=== PATIENT | female | born 1985 | race American Indian/Alaskan Native ===

== ENCOUNTER 2019-01-05 11:05 | Day surgery (SDC) | payer OTHER ==
[~2019-01-05 11:05] MED LIST: Ketamine 500 mg/10 ML MDV ONE; Lactated Ringers 1,000 ML IV SCH; Lidocaine 1% 4 ML ONE; Lidocaine 1%/Sod Bicarbonate in NS 8.4% 1 ML Syringe IDERM PRN; Propofol 200 MG/20 ML SDV ONE; Sodium Chloride 0.9% 10 ML Syringe FLUSH PRN
--- NOTE | 2019-01-05 12:02 | PCM.PREANE ---
Preanesthetic Assessment - Procedure Proposed Procedure: EGD - Anesthesia/Transfusion/Family Hx Anesthesia History: Prior Anesthesia Without Reaction Family History of Anesthesia Reaction: No Transfusion History: No Prior Transfusion(s) - Review of Systems General: No Symptoms Pulmonary: No Symptoms Cardiovascular: No Symptoms Gastrointestinal: No Symptoms Neurological: No Symptoms Other: Reports: Depression (history) - Physical Assessment NPO Status Date: 01/04/19 NPO Status Time: 00:00 Height: 1.73 m Weight: 89 kg ASA Class: 2 Mental Status: Alert & Oriented x3 Airway Class: Mallampati = 1 Dentition: Reports: Normal Dentition, [place](s) Thyro-Mental Finger Breadths: 3 Mouth Opening Finger Breadths: 3 ROM/Head Extension: Full Lungs: Clear to Auscultation, Normal Respiratory Effort Cardiovascular: Regular Rate, Regular Rhythm - Allergies Allergies/Adverse Reactions: Allergies Allergy/AdvReac Type Severity Reaction Status Date / Time No Known Allergies Allergy Verified 01/02/19 11:09 - Blood Blood Available: No Product(s) Available: None - Anesthesia Plan Pre-Op Medication Ordered: None - Acknowledgements Anesthesia Type Planned: MAC Pt an Appropriate Candidate for the Planned Anesthesia: Yes Alternatives and Risks of Anesthesia Discussed w Pt/Guardian: Yes Pt/Guardian Understands and Agrees with Anesthesia Plan: Yes PreAnesthesia Questionnaire Cardiovascular History: Reports: Hypertension Respiratory History: Reports: None Gastrointestinal History: Reports: None Genitourinary History: Reports: [employer] MA[employer]GER ANALYTICAL History: Reports: None Musculoskeletal History: Reports: Other (See Below) Other Musculoskeletal History: thoracic pain Neurological History: Reports: None Psychiatric History: Reports: Anxiety, PTSD, Other (See Below) Other Psychiatric History: borderline personality disorder, psychoactive substance disorder, major depressive disorder Endocrine/Metabolic History: Reports: None Hematologic History: Reports: None Immunologic History: Reports: None Oncologic (Cancer) History: Reports: None Dermatologic History: Reports: Other (See Below) Other Dermatologic History: skin disorder - Past Surgical History Head Surgeries/Procedures: Reports: None HEENT Surgical History: Reports: Tonsillectomy Cardiovascular Surgical History: Reports: None Respiratory Surgical History: Reports: None GI Surgical History: Reports: EGD Female Surgical History: Reports: Section Male Surgical History: Reports: None Endocrine Surgical History: Reports: None Neurological Surgical History: Reports: None Musculoskeletal Surgical History: Reports: None Oncologic Surgical History: Reports: None Dermatological Surgical History: Reports: None - SUBSTANCE USE Smoking Status *Q: Former Smoker Tobacco Use Within Last Twelve Months: No Second Hand Smoke Exposure: No Days Per Week of Alcohol Use: 0 Number of Drinks Per Day: 0 Total Drinks Per Week: 0 Recreational Drug Use History: Yes Recreational Drug Type: Reports: Methamphetamine (in the past, 2017) - HOME MEDS Home Medications: Home Meds Acetaminophen [Tylenol Extra Strength] 500 mg PO BID 01/02/19 [History] Citalopram Hydrobromide [Celexa] 20 mg PO DAILY 01/02/19 [History] Hydrocortisone [Anusol-HC] 1 dose RECTAL QID PRN 01/02/19 [History] Oxybutynin [Oxybutynin ER] 5 mg PO DAILY 01/02/19 [History] Pantoprazole Sodium [Protonix] 40 mg PO QAM 01/02/19 [History] Prazosin [Minpress] 3 mg PO BEDTIME 01/02/19 [History] cloNIDine HCl [Catapres] 0.2 mg PO BID 01/02/19 [History] hydrOXYzine HCl [hydrOXYzine] 50 mg PO DAILY 01/02/19 [History] hydrOXYzine HCl [hydrOXYzine] 50 mg PO Q6H PRN 01/02/19 [History] risperiDONE [Risperdal] 2 mg PO BEDTIME 01/02/19 [History] - CURRENT (IN HOUSE) MEDS Current Meds: Current Medications Lactated Ringer's (Ringers, Lactated) 1,000 mls @ 125 mls/hr IV ASDIRECTED DEXTER Stop: 01/05/19 23:00 Last Admin: 01/05/19 11:25 Dose: 125 mls/hr Lidocaine/Sodium Bicarbonate (Buffered Lidocaine 1% In Ns 8.4%) 0.25 ml IDERM ONETIME PRN PRN Reason: Prior to IV Start Stop: 01/05/19 18:00 Last Admin: 01/05/19 11:24 Dose: 0.25 ml Sodium Chloride (Saline Flush) 10 ml FLUSH ASDIRECTED PRN PRN Reason: Keep Vein Open Stop: 01/05/19 18:00 Discontinued Medications Lidocaine HCl (Xylocaine-Mpf 1%) Confirm Administered Dose 4 mls @ as directed .ROUTE .STK-MED ONE Stop: 01/05/19 10:39 Lidocaine HCl (Xylocaine-Mpf 1%) Confirm Administered Dose 4 mls @ as directed .ROUTE .STK-MED ONE Stop: 01/05/19 10:40 Ketamine HCl (Ketalar) Confirm Administered Dose 500 mg .ROUTE .STK-MED ONE Stop: 01/05/19 10:39 Propofol (Diprivan 20 Ml) Confirm Administered Dose 400 mg .ROUTE .STK-MED ONE Stop: 01/05/19 10:39 Propofol (Diprivan 20 Ml) Confirm Administered Dose 200 mg .ROUTE .STK-MED ONE Stop: 01/05/19 10:44
[2019-01-05] MEDS ORDERED: Succinylcholine/Normal Saline 100 MG/5 ML Syringe ONE ×2 (14:09→14:30)
[2019-01-05] MEDS ORDERED: Lactated Ringers 1,000 ML ONE ×2 (14:25→14:45)
[2019-01-05] MEDS ORDERED: Ondansetron 4 MG/2 ML SDV ONE (14:46)
[2019-01-05] MEDS ORDERED: Dexamethasone 4 MG/ML SDV ONE (14:46)
[2019-01-05] MEDS ORDERED: LORazepam 2 MG/ML SDV IVPUSH ONE (15:37)
[2019-01-05] MEDS ORDERED: fentaNYL 100 MCG/2 ML SDV IVPUSH PRN (15:37)
[2019-01-05] MEDS ORDERED: Ketorolac 30 MG/ML SDV IVPUSH SCH (15:45)
--- NOTE | 2019-01-05 15:55 | PCM.SN ---
- Free Text/Narrative Note: Additional note from anesthesia record: Patient planned general anesthesia due to length of procedure concern. Later revealed that this same procedure was attempted at [place] and was unable to be completed under MAC due to similar circumstances. After administering induction medications, patient started having profuse emesis coming from mouth and nares. suction applied, secretions continued, large chunks of left over food stuck in suction. help called for, 02 mask applied between suctioning of more food particles with emesis. oral airway inserted and unable to get saturations above 80% despite oral airway and 2 handed 2 person ventilation. additional dose of succincholine administered due to lack of co2 waveform and desaturation. eventually saturations got to 85% without improvement so glidescope intuation attempted with much suctioning before success with 7.0 ett. decided to proceed with procedure, which led to more food particles - over 500 mL was suctioned from patient including from ETT . procedure complete and plan was made to attempt bronchoscopy and patient resedated before extubation. staff unable to get brochoscope hooked up due to lack of suctioning part, so patient woke up at this time. Patient awoke from anesthesia very quickly and ett removed with suction. o2 mask applied and NC applied for PACU transfer. Patient's VSS and coughing alot stating,"she feels like she is dying." Recommendations to surgeon to keep her overnight for monitoring of respiratory status due to known aspiration. Antibiotics recommended and chest x-ray. Patient complaining of pain in her esophagus and stating, "you should have just left me alone, you just hurt me more like last time." none of this information was relieved during her preop interview. Coughing and deep breathing recommended. pain medicine and antianxiety medicine ordered. Hospitalist to follow.
[2019-01-05] MEDS ORDERED: Albuterol/Ipratropium 3.0-0.5 MG/3 ML Neb Soln NEB PRN (16:04)
[2019-01-05] MEDS ORDERED: Albuterol/Ipratropium 3.0-0.5 MG/3 ML Neb Soln ONE (16:07)
--- NOTE | 2019-01-05 19:36 | OR ---
DATE OF OPERATION: 01/05/2019 SURGEON: Whitney Hernandez MD PREOPERATIVE DIAGNOSIS: 1. Dysphagia. 2. Achalasia. POSTOPERATIVE DIAGNOSIS: 1. Dysphagia. 2. Achalasia. OPERATION PERFORMED: Total gastroduodenoscopy with biopsies. FINDINGS: There were copious amount of food in the mid and distal esophagus and narrowing in the GE junction. Gastritis. INDICATION AND CONSENT: Ms. Hoyos is a 33-year-old female who presented to clinic with a known history of difficulty with keeping food down. The patient had been placed on liquid diet. The patient underwent a CT scan that reveals megaesophagus concerning for achalasia. Upper GI also revealed the same. The patient was offered an EGD to rule out pseudoachalasia, and the patient agreed to proceed with the procedure. The patient initially underwent an EGD and a MAC, but due to vomiting of copious amount of food, the procedure was aborted, and the patient was brought here today to undergo EGD under anesthesia. Once again, I discussed with the patient risks, benefits including perforation, aspiration and bleeding. The patient agreed to proceed with the procedure, and informed consent was obtained. DESCRIPTION OF PROCEDURE: The patient was taken to the procedure room, placed in left lateral decubitus position. Due to need for intubation, the patient was placed in supine position. Following induction of general endotracheal anesthesia, which was complicated by copious amount of food in the throat and mouth increasing the risk for aspiration, intubation was done and procedure was performed. There was copious amount of food in the mid and distal esophagus. Food was solid. There was narrowing in the GE junction, approx 8mm. The smaller EGD scope, was able to pass through the narrowing without any problem and advanced into the 2nd portion of duodenum which was normal. Stomach showed some inflammation, therefore, biopsies were taken with cold forceps in the antrum as well as stomach body. Upon withdrawing the stomach, retroflexion did not reveal any hiatal hernia, and GE junction appeared to be mildly inflamed, therefore, biopsies were taken here too with cold forceps. Once again, visualization of the GE junction showed normal mucosa, no extrinsic compression or mass, raising concern for achalasia. As the scope was withdrawn back into the esophagus, suctioned as much fluid as we could. However, because most of the food was solid, would not able to suction some of that. The scope was withdrawn and the patient was woken from general anesthesia and extubated, and taken to the PACU. Of note, there was aspiration of some contents into the trachea as the patient was coughing up some of the food materials into the ET tube and post extubation. The patient will be admitted overnight for observation to make sure she can maintain her saturation and she does not get aspiration pneumonitis in the next 24 hours, and the patient will be discharged from the hospital in the next day or 2 if doing well. Plan for the patient to undergo manometry to confirm or rule out achalasia and further treatment to be offered after that. ANESTHESIA: ESTIMATED BLOOD LOSS: MMODAL /[id number] MTDLisa
[2019-01-05] MEDS: Albuterol/Ipratropium 3.0-0.5 MG/3 ML Neb Soln NEB SCH (20:32)
[2019-01-06] MEDS: Albuterol/Ipratropium 3.0-0.5 MG/3 ML Neb Soln NEB SCH ×3 (02:38→14:16)
[2019-01-06] MEDS: Benzocaine/Cetylpyridinium/Menthol Lozenge MUCMEM PRN ×2 (04:44→14:24)
--- NOTE | 2019-01-06 06:26 | PCM48HPAN ---
Post Anesthesia Note - EVALUATION WITHIN 48HRS OF ANESTHETIC Vital Signs in Normal Range: Yes Patient Participated in Evaluation: Yes Respiratory Function Stable: Yes Airway Patent: Yes Cardiovascular Function Stable: Yes Hydration Status Stable: Yes Pain Control Satisfactory: Yes Nausea and Vomiting Control Satisfactory: Yes Mental Status Recovered: Yes Vital Signs: Last Vital Signs Temp 36.7 C 01/06/19 04:00 Pulse 98 01/06/19 04:00 Resp 17 01/06/19 04:00 BP 108/58 L 01/06/19 04:00 Pulse Ox 95 01/06/19 04:00 - COMMENTS/OBSERVATIONS Free Text/Narrative:: No anesthesia complications noted.
== END 2019-01-06 15:00 | disposition home or self-care (01) ==
LOC: EEVIPCON 11:05 → JD.SDS 11:05 → JD.MS 16:50 → JD.SDS 01-06 15:00
PROVIDERS: ATTEND Surgery
DX: K22.0 Achalasia of cardia (principal); K29.50 Unspecified chronic gastritis without bleeding; K20.9 Esophagitis, unspecified; Z87.891 Personal history of nicotine dependence; Z79.899 Other long term (current) drug therapy; I10 Essential (primary) hypertension; F32.9 Major depressive disorder, single episode, unspecified
CPT/HCPCS: 43239; 94640; 94761; A9270; J0330; J1100; J1885; J2001; J2060; J2405; J2704; J3010; J7120; 00731; J7620-GY